=== PATIENT | female | born 1970 | race Caucasian/White ===

== ENCOUNTER 2020-10-20 20:42 | Inpatient (IN) | payer OTHER ==
[2020-10-21 00:27] LABS: Basophils % 0.6 % (0-1.3); Hematocrit 38.9 % (36.0-45.0); Lymphocytes % 33.7 % (15.3-44.8); MPV 9.1 fL (7.6-11.3); RBC Red Blood Cell Count 4.57 M/uL (3.86-4.86)
[2020-10-21 00:42] LABS: Albumin 3.5 g/dL (3.4-5.0); Bilirubin Direct 0.1 mg/dL (0-0.2); Bilirubin Total 0.4 mg/dL (0.2-1.0); Potassium 4.1 mmol/L (3.5-5.1); Protein, Total 7.7 g/dL (6.4-8.2)
[2020-10-21] MEDS ORDERED: CEFEPIME/SWI 1gm 10 ML ONE (01:26)
[2020-10-21] MEDS ORDERED: NA CHLORIDE 0.9% 100 ML ONE (01:26)
[2020-10-21 01:33] LABS: Urine Blood 1+ (NEG); Urine Glucose NEGATIVE (NEG); Urine Protein TRACE (NEG); Urine Specific Gravity >1.030 (1.005-1.030)
--- NOTE | 2020-10-21 01:37 | ER ---
Nurse's Notes [facility] Name: Idania iFelds Age: 50 yrs Sex: Female : 1970 Arrival Date: 10/20/2020 Time: 21:10 Bed 15 Private MD: Diagnosis: Incarcerated Omentum ;Ventral hernia Presentation: 10/20 21:24 Chief complaint: Patient states: Abdominal hernia, red, swollen and sore x 2 - 3 days. ca1 Redness noticed today. Reports tender to touch. Coronavirus screen: Client denies travel out of the [place] in the last 14 days. At this time, the client does not indicate any symptoms associated with coronavirus-19. Ebola Screen: Patient negative for fever greater than or equal to 101.5 degrees Fahrenheit, and additional compatible Ebola Virus Disease symptoms Patient denies exposure to infectious person. Patient denies travel to an Ebola-affected area in the 21 days before illness onset. No symptoms or risks identified at this time. Initial Sepsis Screen: Does the patient meet any 2 criteria? No. Patient's initial sepsis screen is negative. Does the patient have a suspected source of infection? No. Patient's initial sepsis screen is negative. Risk Assessment: Do you want to hurt yourself or someone else? Patient reports no desire to harm self or others. Onset of symptoms was October 20, 2020. 21:24 Method Of Arrival: Ambulatory ca1 21:24 Acuity: CYNDI 3 ca1 MARKETER: 21:28 LMP N/A - Irregular menses ca1 Historical: - Allergies: 21:28 PENICILLINS; ca1 21:28 Codeine; ca1 - Home Meds: 21:28 levothyroxine oral [Active]; ca1 - PMHx: 21:28 Hernia; Thyroid problem; ca1 - PSHx: 21:28 ; ca1 - Immunization history:: Client reports receiving the 1st dose of the Covid vaccine, September 2020 Flu vaccine is up to date. - Social history:: Smoking status: Patient denies any tobacco usage or history of. Screenin/25 00:06 Abuse screen: Denies threats or abuse. Denies injuries from another. Nutritional rr5 screening: No deficits noted. Tuberculosis screening: No symptoms or risk factors identified. Fall Risk IV access (20 points). Total Godoy Fall Scale indicates No Risk (0-24 pts). Assessment: 00:00 GI: Abdomen is round non-distended, Reports lower abdominal pain, abdominal hernia. : rr5 No signs and/or symptoms were reported regarding the genitourinary system. EENT: No signs and/or symptoms were reported regarding the EENT system. Derm: Skin is intact, is healthy with good turgor, Skin temperature is warm. Musculoskeletal: Capillary refill < 3 seconds. 00:06 General: Appears in no apparent distress. uncomfortable, Behavior is calm, cooperative, rr5 appropriate for age. Pain: Complains of pain in abdomen Pain currently is 3 out of 10 on a pain scale. Quality of pain is described as aching, Pain began gradually, Is intermittent. Neuro: Level of Consciousness is awake, alert, obeys commands, Oriented to person, place, time. Cardiovascular: Capillary refill < 3 seconds Patient's skin is warm and dry. Respiratory: Airway is patent Respiratory effort is even, unlabored, Respiratory pattern is regular, symmetrical. 01:20 Reassessment: Patient appears in no apparent distress at this time. Patient and/or rr5 family updated on plan of care and expected duration. Pain level reassessed. Patient is alert, oriented x 3, equal unlabored respirations, skin warm/dry/pink. awaiting for results. 02:05 Reassessment: Patient appears in no apparent distress at this time. Patient is alert, rr5 oriented x 3, equal unlabored respirations, skin warm/dry/pink. 03:00 Reassessment: Patient appears in no apparent distress at this time. Patient is alert, rr5 oriented x 3, equal unlabored respirations, skin warm/dry/pink. agreed for the plan of care hospitalist at bedside. 12:33 Reassessment: report given to Lovely SIERRA jd3 Vital Signs: 10/20 21:24 BP 139 / 87; Pulse 103; Resp 16 S; Temp 97.8(TE); Pulse Ox 100% on R/A; Weight 106.59 ca1 kg (R); Height 5 ft. 6 in. (167.64 cm) (R); Pain /; 10/21 00:00 BP 131 / 85; Pulse 95; Resp 17; Pulse Ox 98% ; rr5 01:00 BP 134 / 84; Pulse 90; Resp 16; Pulse Ox 99% ; rr5 02:00 BP 135 / 90; Pulse 96; Resp 15; Pulse Ox 100% ; rr5 03:00 BP 131 / 83; Pulse 94; Resp 19; Pulse Ox 99% ; rr5 10/20 21:24 Body Mass Index 37.93 (106.59 kg, 167.64 cm) ca1 ED Course: 10/20 21:10 Patient arrived in ED. am4 21:27 Triage completed. ca1 21:28 Arm band placed on right wrist. ca1 23:33 Hiro Hamilton PA is PHCP. jr8 23:33 Maged Bernal MD is Attending Physician. jr8 23:50 Ronald Weber, BHANU is Primary Nurse. rr5 10/21 00:00 Inserted saline lock: 20 gauge in right forearm, using aseptic technique. Blood rr5 collected. 00:06 Patient has correct armband on for positive identification. Placed in gown. Bed in low rr5 position. Call light in reach. Pulse ox on. NIBP on. 01:27 Guille Haider is Hospitalizing Provider. jr8 01:36 CT Abd/Pelvis - IV Contrast Only In Process Unspecified. EDMS 03:27 No provider procedures requiring assistance completed. Patient admitted, IV remains in rr5 place. intact, No redness/swelling at site. Administered Medications: 01:13 Dru grams of (Cefepime 1 grams, NS 0.9% 100 ml) Route: IVPB; Rate: 200 ml/hr; rr5 Infused Over: 30 mins; Site: right forearm; 02:15 Follow up: Response: No adverse reaction; IV Status: Completed infusion; IV Intake: rr5 100ml Intake: 02:15 IV: 100ml; Total: 100ml. rr5 Outcome: 01:36 Decision to Hospitalize by Provider. jr8 03:27 Admitted to ER Hold. Please see [facility] for further documentation. rr5 03:27 Condition: stable 03:27 Instructed on the need for admit. 12:34 Patient left the ED. jd3 Signatures: Dispatcher [employer] EDPA Hiro Hamilton PA PA jr8 Elieser Magallanes RN RN jd3 Ronald Weber, RN RN rr5 Lluvia Hess RN RN ca1 Gladis Foster
--- NOTE | 2020-10-21 01:37 | EDPHYS ---
Physician Documentation [facility] Name: Idania Fields Age: 50 yrs Sex: Female : 1970 Arrival Date: 10/20/2020 Time: 21:10 Bed 15 Private MD: ED Physician Maged Bernal HPI: 10/21 00:37 This 50 yrs old Female presents to ER via Ambulatory with complaints of jr8 hernia. 00:37 Onset: The symptoms/episode began/occurred acutely, today. The symptoms do not radiate. jr8 Associated signs and symptoms: none. The symptoms are described as sharp. Modifying factors: The symptoms are alleviated by nothing, the symptoms are aggravated by movement. Severity of pain: At its worst the pain was mild in the emergency department the pain is unchanged. The patient has not experienced similar symptoms in the past. The patient has not recently seen a physician. Patient stated that she has history of abdominal hernia. Noticed that it has been protruding for the last day or so. Now with erythema and tenderness . MANAGER E LEARNING: 10/20 21:28 LMP N/A - Irregular menses ca1 Historical: - Allergies: 21:28 PENICILLINS; ca1 21:28 Codeine; ca1 - Home Meds: 21:28 levothyroxine oral [Active]; ca1 - PMHx: 21:28 Hernia; Thyroid problem; ca1 - PSHx: 21:28 ; ca1 - Immunization history:: Client reports receiving the 1st dose of the Covid vaccine, September 2020 Flu vaccine is up to date. - Social history:: Smoking status: Patient denies any tobacco usage or history of. ROS: 10/21 00:37 Eyes: Negative for injury, pain, redness, and discharge, ENT: Negative for injury, jr8 pain, and discharge, Neck: Negative for injury, pain, and swelling, Cardiovascular: Negative for chest pain, palpitations, and edema, Respiratory: Negative for shortness of breath, cough, wheezing, and pleuritic chest pain, Back: Negative for injury and pain, MS/Extremity: Negative for injury and deformity, Skin: Negative for injury, rash, and discoloration, Neuro: Negative for headache, weakness, numbness, tingling, and seizure. Abdomen/GI: Positive for abdominal pain, constipation, redness, Negative for nausea, vomiting, and diarrhea. Exam: 00:37 Constitutional: This is a well developed, well nourished patient who is awake, alert, jr8 and in no acute distress. Cardiovascular: Regular rate and rhythm with a normal S1 and S2. No gallops, murmurs, or rubs. Normal PMI, no JVD. No pulse deficits. Respiratory: Lungs have equal breath sounds bilaterally, clear to auscultation and percussion. No rales, rhonchi or wheezes noted. No increased work of breathing, no retractions or nasal flaring. Back: No spinal tenderness. No costovertebral tenderness. Full range of motion. Skin: Warm, dry with normal turgor. Normal color with no rashes, no lesions, and no evidence of cellulitis. MS/ Extremity: Pulses equal, no cyanosis. Neurovascular intact. Full, normal range of motion. Neuro: Awake and alert, GCS 15, oriented to person, place, time, and situation. Cranial nerves II-XII grossly intact. Motor strength 5/5 in all extremities. Sensory grossly intact. Cerebellar exam normal. Normal gait. 00:37 Abdomen/GI: Inspection: erythema noted to supraumbilical region. Approximately 7.5 cm in width , Bowel sounds: active, all quadrants, Palpation: soft, in all quadrants, mass, that is hard, that is tender, of the supraumbilical region, Hernia: noted in the paraumbilical area, tenderness, that is moderate. Vital Signs: 10/20 21:24 BP 139 / 87; Pulse 103; Resp 16 S; Temp 97.8(TE); Pulse Ox 100% on R/A; Weight 106.59 ca1 kg (R); Height 5 ft. 6 in. (167.64 cm) (R); Pain 3/10; 10/21 00:00 BP 131 / 85; Pulse 95; Resp 17; Pulse Ox 98% ; rr5 01:00 BP 134 / 84; Pulse 90; Resp 16; Pulse Ox 99% ; rr5 02:00 BP 135 / 90; Pulse 96; Resp 15; Pulse Ox 100% ; rr5 03:00 BP 131 / 83; Pulse 94; Resp 19; Pulse Ox 99% ; rr5 10/20 21:24 Body Mass Index 37.93 (106.59 kg, 167.64 cm) ca1 MDM: 10/20 23:33 Patient medically screened. jr8 10/21 01:25 Data reviewed: vital signs, nurses notes, lab test result(s), radiologic studies, CT [facility] scan. Data interpreted: Pulse oximetry: on room air is 100 %. Interpretation: normal. Counseling: I had a detailed discussion with the patient and/or guardian regarding: the historical points, exam findings, and any diagnostic results supporting the discharge/admit diagnosis, lab results, radiology results, the need for further work-up and treatment in the hospital. 01:25 ED course: Dr. Ambrosio consulted and will see patient in the AM. [facility] 10/20 23:43 Order name: Basic Metabolic Panel [facility] 10/20 23:43 Order name: CBC with Diff; Complete Time: 00:40 [facility] 10/20 23:43 Order name: Hepatic Function [facility] 10/20 23:43 Order name: Lipase [facility] 10/20 23:44 Order name: Basic Metabolic Panel [facility] 10/21 01:00 Order name: Urine --Ancillary (enter results) [facility] 10/21 01:00 Order name: Urine Dipstick--Ancillary (enter results) [facility] 10/21 01:00 Order name: Urine --Ancillary; Complete Time: 01:37 [facility] 10/21 01:01 Order name: Urine Dipstick-Ancillary; Complete Time: 01:37 [facility] 10/21 01:37 Order name: COVID-19 : Document "Date of Symptom Onset" if Symptomatic. [facility] 10/21 04:31 Order name: T4 Free [facility] 10/21 04:31 Order name: Thyroid Stimulating Hormone [facility] 10/21 05:10 Order name: SARS-COV-2 RT PCR [facility] 10/20 23:43 Order name: IV Saline Lock; Complete Time: 00:03 [facility] 10/20 23:43 Order name: Labs collected and sent; Complete Time: 00:03 [facility] 10/20 23:43 Order name: CT Abd/Pelvis - IV Contrast Only [facility] 10/21 00:41 Order name: Urine Dipstick-Ancillary (obtain specimen); Complete Time: 00:57 [facility] 10/21 00:41 Order name: Urine Test (obtain specimen); Complete Time: 00:57 [facility] 10/21 02:46 Order name: CONS Physician Consult EDNJ Administered Medications: 01:13 Dru grams of (Cefepime 1 grams, NS 0.9% 100 ml) Route: IVPB; Rate: 200 ml/hr; rr5 Infused Over: 30 mins; Site: right forearm; 02:15 Follow up: Response: No adverse reaction; IV Status: Completed infusion; IV Intake: rr5 100ml Disposition: 10/22 07:53 Co-signature as Attending Physician, Maged Bernal MD I agree with the assessment and jonathon plan of care. Disposition: 10/21/20 01:36 Hospitalization ordered by Guille Haider for Observation. Preliminary diagnosis are Incarcerated Omentum , Ventral hernia. - Bed requested for Telemetry/MedSurg (observation). - Status is Observation. jd3 - Condition is Stable. - Problem is new. - Symptoms have improved. Signatures: Dispatcher [employer] EDNJ Francisca Reyes RN RN dw Anderson, Corey, MD MD cha Roszak, Josh, PA PA jr8 Elieser Magallanes RN RN jRonald Boyle RN RN rr5 Lluvia Hess RN RN ca1 Nivia Perez RN RN rd1 Corrections: (The following items were deleted from the chart) 10/21 02:53 01:38 CORONAVIRUS ordered. [facility] EDMS 02:58 01:36 Hospitalization Ordered by Guille Haider for Observation. Preliminary diagnosis rd1 is Incarcerated Omentum ; Ventral hernia. Bed requested for Telemetry/MedSurg (observation). Status is Observation. Condition is Stable. Problem is new. Symptoms have improved. jr8 11:27 02:58 10/21/2020 01:36 Hospitalization Ordered by Guille Haider for Observation. dw Preliminary diagnosis is Incarcerated Omentum ; Ventral hernia. Bed requested for [facility] ER HOLD. Status is Observation. Condition is Stable. Problem is new. Symptoms have improved. rd1 11:36 11:27 10/21/2020 01:36 Hospitalization Ordered by Guille Haider for Observation. dw Preliminary diagnosis is Incarcerated Omentum ; Ventral hernia. Bed requested for Telemetry/MedSurg (observation). Status is Observation. Condition is Stable. Problem is new. Symptoms have improved. dw 12:34 11:36 10/21/2020 01:36 Hospitalization Ordered by Guille Baidoo for Observation. jd3 Preliminary diagnosis is Incarcerated Omentum ; Ventral hernia. Bed requested for Telemetry/MedSurg (observation). Status is Observation. Condition is Stable. Problem is new. Symptoms have improved. dw
[2020-10-21] MEDS ORDERED: ONDANSETRON 4 MG/2 ML VIAL IV PRN (03:33)
[2020-10-21] MEDS ORDERED: ACETAMINOPHEN 500 MG TAB PO PRN (03:33)
[2020-10-21 03:35] VITALS: BMI 37.9
[2020-10-21 04:31] LABS: Thyroid Stimulating Hormone 0.036 uIU/mL (0.360-3.740)
--- NOTE | 2020-10-21 05:49 | P.HP ---
Certification for Inpatient Patient admitted to: Inpatient With expected LOS: >2 Midnights Patient will require the following post-hospital care: None Practitioner: I am a practitioner with admitting privileges, knowledge of patient current condition, hospital course, and medical plan of care. Services: Services provided to patient in accordance with Admission requirements found in Title 42 Section 412.3 of the Code of Federal Regulations <Renny Kate - Last Filed: 10/21/20 05:50> Patient History Date of Service: 10/21/20 Primary Care Provider: [facility] Reason for admission: umbilical hernia, erythema/pain History of Present Illness: Ms. Fields is a 50 yo female with hypothyroidism, HLD, and GERD here today with a few days of soreness around her umbilical hernia. Today she started to have erythema around the hernia as well. Pain is a 3/10. Pain is worse with moving, bending, sititng up, and to the touch. She says it has been sore in the past but has never been red. Reports she is still passing gas. Denies night sweats chills, N/V, diarrhea. CT scan showed 5.4 cm periumbilical hernia contianing fat with associated fat stranding. - Past Medical/Surgical History -: hernia -: hypothyroidism -: GERD -: HLD -: Cesearean - Social History Smoking Status: Never smoker Alcohol use: No CD- Drugs: No Caffeine use: No Place of Residence: Home <Renny Kate - Last Filed: 10/21/20 05:50> Date of Service: 10/23/20 <brooke morrow - Last Filed: 10/23/20 19:16> Allergies codeine Allergy (Unverified 10/21/20 03:32) Itching/Hives/Rash Penicillins Allergy (Unverified 10/21/20 03:32) Itching/Hives/Rash Review of Systems General: Unremarkable Eyes: Unremarkable ENT: Unremarkable Respiratory: Unremarkable Cardiovascular: Unremarkable Gastrointestinal: Abdominal Pain, As per HPI Genitourinary: Unremarkable Musculoskeletal: Unremarkable Integumentary: As per HPI Neurological: Unremarkable Lymphatics: Unremarkable <Saba Kateabraham Garcia - Last Filed: 10/21/20 05:50> Physical Examination - Vital Signs Temperature: 97.8 F Blood Pressure: 126/80 Pulse: 82 Respirations: 16 Pulse Ox (%): 98 - Physical Exam General: Alert, In no apparent distress, Oriented x3, Cooperative HEENT: Atraumatic, Normocephalic, PERRLA, Mucous membr. moist/pink, EOMI, Sclerae nonicteric Neck: Supple, 2+ carotid pulse no bruit, JVD not distended, No Thyromegaly, No LAD Respiratory: Clear to auscultation bilaterally, Normal air movement Cardiovascular: No edema, Normal pulses, Regular rate/rhythm, Normal S1 S2, No gallops, No rubs, No murmurs Capillary refill: <2 Seconds Gastrointestinal: Normal bowel sounds, Soft and benign, Non-distended, No ascites, No rebound, No guarding, Other (umbilical hernia, mildly tender to the touch, erythema over site ) Musculoskeletal: No clubbing, No swelling, No contractures, No erythema, No tenderness, No warmth Integumentary: No rashes, No breakdown, No significant lesion, No warmth, No cyanosis, Tenderness/swelling, Erythema Neurological: Normal speech, Normal strength at 5/5 x4 extr, Normal tone, Sensation intact, Cranial nerves 3-12 intact, Normal affect Lymphatics: No axilla or inguinal lymphadenopathy - Studies Laboratory Data (last 24 hrs) 10/21/20 00:00: WBC 9.00, Hgb 12.9, Hct 38.9, Plt Count 274 10/21/20 00:00: Sodium 143, Potassium 4.1, BUN 17, Creatinine 0.84, Glucose 102, Total Bilirubin 0.4, AST 13 L, ALT 25, Alkaline Phosphatase 61, Lipase 159 <Renny Kate - Last Filed: 10/21/20 05:50> Assessment and Plan - Problems (Diagnosis) (1) Umbilical hernia Status: Acute Plan: NPO, cefepime for abx prophylaxis (allergic to penicillin), surgery consulted. Qualifiers: Obstruction and gangrene presence: with obstruction but without gangrene Qualified Code(s): K42.0 - Umbilical hernia with obstruction, without gangrene (2) Hypothyroidism Status: Chronic Plan: will reconcile and continue home medications Qualifiers: Hypothyroidism type: unspecified Qualified Code(s): E03.9 - Hypothyroidism, unspecified Discharge Plan: Home Plan to discharge in: 48 Hours - Advance Directives Does patient have a Living Will: No Does patient have a Durable POA for Healthcare: No - Code Status/Comfort Care Code Status Assessed: Yes (full code) Critical Care: No Time Spent Managing Pts Care (In Minutes): 70 <Renny Kate - Last Filed: 10/21/20 05:50> - Problems (Diagnosis) (1) Umbilical hernia Status: Acute Qualifiers: Obstruction and gangrene presence: with obstruction but without gangrene Qualified Code(s): K42.0 - Umbilical hernia with obstruction, without gangrene (2) Hypothyroidism Status: Chronic Qualifiers: Hypothyroidism type: unspecified Qualified Code(s): E03.9 - Hypothyroidism, unspecified Physician Review: Patient Assessed, Agree with Above Assessment and Plan Physician Review Additional Text: Incarcerated periumbilical hernia Plan: Pain management Consult general surgery-Dr. Ambrosio. <brooke morrow - Last Filed: 10/23/20 19:16>
--- NOTE | 2020-10-21 12:19 | CON ---
Date of Consultation: 10/21/2020 Brief Hpi: The patient is a 50-year-old female with history of hypothyroidism, hyperlipidemia, GERD, who has a known umbilical hernia which was reducible before in the past, who presents with irreducib ility, pains and redness of the skin overlying her hernia, which was about 3/10. It was worse with m oving, bending, sitting up, and tender to the touch and as such she came to the emergency room with t he above-stated complaints. She continues to pass gas. Denies any fever, chills, night sweats, naus ea, vomiting, change in bowel or bladder habits. Past Medical History: Significant for hernia, hypothyroidism, GERD, hyperlipidemia, and . Allergies: TO CODEINE AND PENICILLIN. Social History: She denies smoking, alcohol, recreational drug use. Review of Systems: Ten-point review of systems other than HPI, denies. Physical Examination: Vital Signs: At the time examination her BMI is 38. Her blood pressure was 119/70, pulse is 90, res piratory rate 16, temperature was 97.6. General: She is awake, alert, oriented. Psychiatric: She is appropriate, conversive. HEENT: Normocephalic. Sclerae anicteric. Mucous membranes are moist. Oropharynx clear. Neck: Supple without JVD. Chest: Normal expansion and excursion. Cardiovascular: Regular rate and rhythm. Pulmonary: Clear to auscultation bilaterally. Abdomen: Soft with a tender, red, strangulated supraumbilical hernia. The skin is red and celluliti c. It is tender to palpation. It is irreducible consistent with an incarcerated strangulated umbili altaf hernia. Extremities: No clubbing, cyanosis, edema. Skin: Warm and dry. Laboratory Data: She had a laboratory exam which revealed a white blood cell count of 9.0, hemoglobi n 12.9, hematocrit of 38.9, platelet count is 274, neutrophils are 50%. Her sodium 143, potassium 4. 1, chloride 108, carbon dioxide 28, BUN 17, creatinine 0.8, glucose is 102. Her T bili 0.4, direct c omponent 0.1. Her AST 13, ALT 25, al phos is 61, lipase is 159. Her UA was essentially negative. U rine test negative. She had imaging performed, which included a CT scan of the abdomen and pelvis, officially read by the [facility] radiologist as a 5.4 cm periumbilical hernia containing fat with associated fat stranding. Assessment And Plan: This is a 50-year-old female who comes in with signs and symptoms of incarcerat ed strangulated supraumbilical hernia. 1.IV fluid hydration. 2.Antibiotic coverage. 3.I have explained the risks, benefits, and alternatives of laparoscopic, possible open ventral dory ia repair with mesh including but not limited to bleeding, infection, damage to surrounding tissue, n eed for further operation and procedure. The patient agrees to proceed as indicated. CLARE/DANNY Voice ID: [id number] Report ID: [id number]
[2020-10-21] MEDS ORDERED: Ringers Lactate 1,000 ML IV ONE (12:45)
[2020-10-21] MEDS ORDERED: CEFEPIME 1 GM/VIAL IV SCH (13:00)
[2020-10-21] MEDS ORDERED: CEFEPIME/SWI 1gm 10 ML IV SCH (13:00)
[2020-10-21] MEDS ORDERED: BUPIVACAINE 0.25% PF 10 ML VIAL ONE (13:42)
[2020-10-21] MEDS ORDERED: ACETAMINOPHEN 500 MG TAB ONE (13:55)
[2020-10-21] MEDS ORDERED: dexAMETHasone 10 MG/ML VIAL ONE (13:59)
[2020-10-21] MEDS ORDERED: MIDAZOLAM HCL 2 MG/2 ML INJ ONE (13:59)
[2020-10-21] MEDS ORDERED: FENTANYL CITR 100 MCG/2 ML ONE (13:59)
[2020-10-21] MEDS ORDERED: KETOROLAC 30 MG/ML INJ ONE (13:59)
[2020-10-21] MEDS ORDERED: LIDOCAINE 2% MPF 5 ML VIAL ONE (13:59)
[2020-10-21] MEDS ORDERED: propofoL 200 MG/20 ML VIAL IV ONE (13:59)
[2020-10-21] MEDS ORDERED: ROCURONIUM 50 MG/5 ML VIAL IV ONE (14:00)
[2020-10-21] MEDS ORDERED: CELECOXIB 100 MG CAPSULE ONE (14:00)
[2020-10-21] MEDS ORDERED: ONDANSETRON 4 MG/2 ML VIAL ONE ×2 (14:03→17:11)
--- NOTE | 2020-10-21 14:12 | RAD REPORT ---
EXAM DESCRIPTION: CT - Abdomen Pelvis W Contrast - 10/21/2020 7:03 am CLINICAL HISTORY: The patient is 50 years old and is Female; mid abdominal hernia with pain and eryt rosales TECHNIQUE: Axial computed tomography images of the abdomen and pelvis with intravenous contrast. S agittal and coronal reformatted images were created and reviewed. This CT exam was performed using one or more of the following dose reduction techniques: automated exposure control, adjustment of t he mA and/or kV according to patient size, and/or use of iterative reconstruction technique. COMPARISON: No relevant prior studies available. FINDINGS: Lung bases: Unremarkable. No mass. No consolidation. ABDOMEN: Liver: Unremarkable. No mass. Gallbladder and bile ducts: Unremarkable. No calcified stones. No ductal dilation. Pancreas: Unremarkable. No mass. No ductal dilation. Spleen: Unremarkable. No splenomegaly. Adrenals: Unremarkable. No mass. Kidneys and ureters: Unremarkable. No solid mass. No hydronephrosis. Stomach and bowel: Unremarkable. No obstruction. No mucosal thickening. PELVIS: Appendix: No findings to suggest acute appendicitis. Bladder: Unremarkable. No mass. Reproductive: Unremarkable as visualized. ABDOMEN and PELVIS: Intraperitoneal space: Unremarkable. No free air. No significant fluid collection. Bones/joints: No acute fracture. No dislocation. Soft tissues: 5.4 cm periumbilical hernia containing fat with associated fat stranding. Vasculature: Unremarkable. No abdominal aortic aneurysm. Lymph nodes: Unremarkable. No enlarged lymph nodes. IMPRESSION: 5.4 cm periumbilical hernia containing fat with associated fat stranding. Electronically signed by: Gabe Aden MD 10/21/2020 1:44 AM CDT Due to temporary technical issues with the PACS/Fluency reporting system, reports are being signed by the in house radiologist without review as a courtesy to ensure prompt reporting. The interpreting r adiologist is fully responsible for the content of the report.
--- NOTE | 2020-10-21 15:54 | P.OP ---
Preoperative diagnosis: Incarcerated Strangulated Umbilical Hernia Postoperative diagnosis: Incarcerated Strangulated Umbilical Hernia Primary procedure: Laparoscopic partial omentectomy Secondary procedure: Laparoscopic repair of ventral hernia with mesh Anesthesia: GETA + Local Estimated blood loss: <10cc Specimen: Omentum Findings: Strangulated omentum in ~2cm hernia defect Complications: None Implants: Bard Ventralite ST mesh with echo position 11.4 cm Transferred to: Recovery Room Condition: Good
--- NOTE | 2020-10-21 16:25 | OP ---
Date of Procedure: 10/21/2020 Surgeon: Tho Ambrosio MD, Preoperative Diagnosis: Incarcerated strangulated umbilical hernia. Postoperative Diagnosis: Incarcerated strangulated umbilical hernia. Procedures Performed: 1.Laparoscopic partial omentectomy. 2.Laparoscopic repair of ventral hernia with mesh. 3.Laparoscopic adhesiolysis. Anesthesia: General endotracheal plus local with 0.25% Marcaine without epinephrine. Estimated Blood Loss: Less than 2 mL. Specimen: Omentum. Findings: Strangulated omentum through a 2 cm hernia neck defect in the supraumbilical position. Complications: None. Implants: Bard Ventralight ST mesh with Echo Positioning System, 11.4 cm round mesh used. Disposition: The patient was transferred to the recovery room in good condition. Procedure In Detail: After informed consent was obtained, the patient was brought to the operating r oom, prepped and draped in the usual sterile fashion after adequate anesthesia achieved. I anestheti zed the area of the left upper quadrant with a 0.25% Marcaine and sharply incised the skin. A 5 mm 0 -degree optical trocar was introduced in the abdomen without evidence of complication. Insufflation was obtained to 15 mmHg at this time. There was no injury to vital structures upon entry to the abdo men. Two additional trocars were placed, 1 in the left lower quadrant, 1 right lower quadrant. In t he left lower quadrant, there was a 12 mm trocar and the right lower quadrant was a [address] d under direct visualization without evidence of complication. I then used ratcheted graspers to gra sp the patient's omentum, which was found to be quite firmly attached and strangulated into the supra umbilical hernia defect. This required meticulous dissection with a combination of traction and Liga Sure device. Ultimately, the omentum was reduced and found to be somewhat dusky as such I opted to l igate this portion of the omentum and this was sent off for pathologic examination after being diana t out through the 12 mm trocar. I then skeletonized the abdominal wall by removing some preperitonea l fat, which was found to be quite large amount of adiposity to this area to allow for proper landing zone of the mesh to be placed. Portions of this adipose tissue were removed and placed on the back table until a good solid landing zone was appreciated. At this point, the Endo Stitch V-Loc was then brought onto the field and used to sew the 2 cm hernia defect closed with a baseball stitch type run tabatha orientation with good apposition of the hernia defect. At this point, I then brought a 11.[address] mesh with Echo positioning system, deployed this in central portion of the hernia defect with a small stab incision and ultimately deployed the mesh using the balloon inflation syste m and secured the mesh with a double-crown type orientation using the absorbable fixation tack system . At this point, the area was inspected. No additional hemostatic measures were required. The ball oon was checked on the back table and found to be intact, and the patient's hernia defect was closed. At this point, I removed the 12 mm trocar and closed the 12 mm defect using a Tyler-Davide sutur e passer with a 0 Vicryl in an interrupted fashion with good approximation of tissues and the abdomen was then desufflated under direct visualization without evidence of complication. Remaining trocars were removed. All skin incisions were copiously irrigated and closed with 4-0 Monocryl in a running fashion. Dermabond was placed over top. The patient tolerated the procedure well without evidence of complication and transferred to PACU in good condition. All counts were correct at the end of the case. CLARE/DANNY Voice ID: [id number] Report ID: [id number]
--- NOTE | 2020-10-21 16:42 | P.DS ---
Admission Date: 10/21/20 Discharge Date: 10/21/20 Primary Care Provider: [facility] Disposition: ROUTINE DISCHARGE Discharge Condition: GOOD Reason for Admission: umbilical hernia, erythema/pain - Problems (1) Umbilical hernia Current Visit: Yes Status: Acute Qualifiers: Obstruction and gangrene presence: with obstruction but without gangrene Qualified Code(s): K42.0 - Umbilical hernia with obstruction, without gangrene (2) Hypothyroidism Current Visit: Yes Status: Chronic Qualifiers: Hypothyroidism type: unspecified Qualified Code(s): E03.9 - Hypothyroidism, unspecified Brief History of Present Illness: 50-year-old woman with a history of periumbilical hernia, hypothyroidism presented to the emergency department with a complaint of pain around his periumbilical hernia. She also noted erythema at the site. CT abdomen and pelvis done in the ED reported 5.4 cm umbilical hernia containing fat with fat stranding. Patient was hospitalized for further management. Hospital Course: Patient admitted to the medical floor. General surgery was consulted. Patient was seen by Dr. Ambrosio who performed laparoscopic periumbilical hernia repair, with partial omentectomy. Patient deemed clinically stable for discharge per Dr. Ambrosio. Vital Signs/Physical Exam: Temp Pulse Resp BP Pulse Ox 97. F 96 H 18 123/70 98 10/21/20 16:34 10/21/20 16:34 10/21/20 16:34 10/21/20 16:34 10/21/20 08:00 Laboratory Data at Discharge: WBC 9.00 K/uL (4.3-10.9) 10/21/20 00:00 Hgb 12.9 g/dL (12.0-15.0) 10/21/20 00:00 Hct 38.9 % (36.0-45.0) 10/21/20 00:00 Plt Count 274 K/uL (152-406) 10/21/20 00:00 Sodium 143 mmol/L (136-145) 10/21/20 00:00 Potassium 4.1 mmol/L (3.5-5.1) 10/21/20 00:00 BUN 17 mg/dL (7-18) 10/21/20 00:00 Creatinine 0.84 mg/dL (0.55-1.3) 10/21/20 00:00 Glucose 102 mg/dL (74-106) 10/21/20 00:00 Total Bilirubin 0.4 mg/dL (0.2-1.0) 10/21/20 00:00 AST 13 U/L (15-37) L 10/21/20 00:00 ALT 25 U/L (12-78) 10/21/20 00:00 Alkaline Phosphatase 61 U/L (45-117) 10/21/20 00:00 Lipase 159 U/L (73-393) 10/21/20 00:00 Diet: Regular Activity: No lifting more than 10 lbs Followup: Unknown,U [Primary Care Provider] - Tho Ambrosio MD [ACTIVE - CAN ADMIT] - 1 Week
[2020-10-21 18:11] VITALS: BP 124/67; TEMP 97.4; O2SAT 97
[2020-10-21] MEDS ORDERED: TRAMADOL HCL 50 MG TAB ONE (18:13)
== END 2020-10-21 18:35 | disposition home or self-care (01) | DRG 355 ==
LOC: ER 20:42 → ERHOLD 10-21 03:08
PROVIDERS: ADMIT Internal Medicine; ATTEND Internal Medicine
PROC: 0DBU0ZZ Excision of Omentum, Open Approach (ICD-10-PCS; 2020-10-21)
PROC: 0WUF4JZ Supplement Abdominal Wall with Synthetic Substitute, Percutaneous Endoscopic Approach (ICD-10-PCS; principal; 2020-10-21 15:15)
DX: K42.0 Umbilical hernia with obstruction, without gangrene (principal); E03.9 Hypothyroidism, unspecified; E78.5 Hyperlipidemia, unspecified; K21.9 Gastro-esophageal reflux disease without esophagitis; Z88.0 Allergy status to penicillin; Z88.5 Allergy status to narcotic agent; Z79.890 Hormone replacement therapy; Z20.822 Contact with and (suspected) exposure to COVID-19
CPT/HCPCS: 36415; 74177; 80048; 80076; 81003; 81025; 83690; 84439; 84443; 85025; 88302; 96365; 99285; C1781; J0692; J1100; J2250; J2405; J2704; J3010; J7120; Q9967; U0003